=== PATIENT | male | born 1955 | race Caucasian/White ===

== ENCOUNTER 2022-09-28 02:55 | Emergency (ER) | payer MEDICARE ==
[2022-09-28] MEDS ORDERED: Dexameth. Sod Phosp. 10 MG/ML (CHEMO USE ONLY) ONE (03:13)
[2022-09-28] MEDS ORDERED: Ipratropium/Albuterol 3 ML NEB ONE (03:15)
== END 2022-09-28 04:30 | disposition home or self-care (01) ==
LOC: ERS 02:55
DX: J20.9 Acute bronchitis, unspecified (principal); J45.909 Unspecified asthma, uncomplicated
CPT/HCPCS: 71045; 94640; J1100; J7620